=== PATIENT | female | born 1985 | race Asian ===

== ENCOUNTER 2017-09-26 08:55 | Outpatient (CLI) | payer OTHER ==
[2017-09-26 09:36] LABS: BASOPHILS % (AUTO) 0.5 % (0.0-2.0); EOSINOPHILS % (AUTO) 1.4 % (0.0-4.0); HEMOGLOBIN 13.4 g/dL (12.0-16.0); LYMPHOCYTES # (AUTO) 1.5 K/uL (2.5-16.5); LYMPHOCYTES % (AUTO) 43.9 % (20.5-51.1); MEAN CORPUSCULAR HEMOGLOBIN 31 pg (27-31); MEAN CORPUSCULAR HGB CONC 34 g/dL (33-37); MEAN CORPUSCULAR VOLUME 91.2 fL (80-94); MONOCYTES # (AUTO) 0.3 K/uL (0.8-1.0); MONOCYTES % (AUTO) 8.8 % (1.7-9.3); NEUTROPHILS # (AUTO) 1.5 K/uL (1.8-7.7); NEUTROPHILS % (AUTO) 45.4 % (42.2-75.2); PLATELET COUNT (AUTO) 108 K/uL (140-450); RED BLOOD CELL COUNT(AUTO) 4.38 MIL/uL (4.20-5.40); WHITE BLOOD COUNT (AUTO) 3.4 K/uL (4.8-10.8)
[2017-09-26 10:15] LABS: ALBUMIN 3.9 g/dL (3.4-5.0); ANION GAP 9.8 (8-16); CARBON DIOXIDE 27.6 mmol/L (21-32); CHOL/HDL RATIO 2.3 (1-4.5); CREATININE 0.5 mg/dL (0.6-1.3); FREE T4 (FREE THYROXINE) 1.05 ng/dL (0.76-1.46); POTASSIUM 4.4 mmol/L (3.5-5.1); THYROID STIMULATING HORMONE 2.73 uIU/mL (0.34-3.74); TOTAL BILIRUBIN 0.7 mg/dL (0.0-1.0)
== END 2017-09-26 20:29 | disposition home or self-care (01) ==
LOC: MLB 08:55
DX: Z00.01 Encounter for general adult medical examination with abnormal findings (principal); E78.5 Hyperlipidemia, unspecified; E11.9 Type 2 diabetes mellitus without complications; R53.83 Other fatigue
CPT/HCPCS: 36415; 80053; 83036; 84439; 84443; 85025

== ENCOUNTER 2017-10-21 08:10 | Outpatient (CLI) | payer OTHER | END 2017-10-21 19:35 | disposition home or self-care (01) | LOC: MUS 08:10 | DX: D70.9 Neutropenia, unspecified (principal); D69.6 Thrombocytopenia, unspecified | CPT/HCPCS: 76700 ==

== ENCOUNTER 2018-11-16 10:45 | Outpatient (CLI) | payer OTHER ==
[2018-11-16 11:05] LABS: BASOPHILS % (AUTO) 0.6 % (0.0-2.0); EOSINOPHILS % (AUTO) 1.7 % (0.0-4.0); HEMATOCRIT 40.5 % (36-48); HEMOGLOBIN 13.3 g/dL (12.0-16.0); LYMPHOCYTES # (AUTO) 1.6 K/uL (2.5-16.5); LYMPHOCYTES % (AUTO) 54.3 % (20.5-51.1); MEAN CORPUSCULAR HEMOGLOBIN 31 pg (27-31); MEAN CORPUSCULAR HGB CONC 33 g/dL (33-37); MEAN CORPUSCULAR VOLUME 93.5 fL (80-94); MONOCYTES # (AUTO) 0.2 K/uL (0.8-1.0); MONOCYTES % (AUTO) 8.4 % (1.7-9.3); PLATELET COUNT (AUTO) 155 K/uL (140-450); RED BLOOD CELL COUNT(AUTO) 4.33 MIL/uL (4.20-5.40); RED CELL DISTRIBUTION WIDTH 12.9 % (11.6-13.7); WHITE BLOOD COUNT (AUTO) 2.9 K/uL (4.8-10.8)
[2018-11-16 11:49] LABS: ALBUMIN 3.9 g/dL (3.4-5.0); ANION GAP 12.3 (8-16); CARBON DIOXIDE 27.2 mmol/L (21-32); CHOL/HDL RATIO 2.3 (1-4.5); CREATININE 0.6 mg/dL (0.6-1.3); POTASSIUM 4.5 mmol/L (3.5-5.1); TOTAL BILIRUBIN 0.5 mg/dL (0.0-1.0)
[2018-11-16 11:57] LABS: FREE T4 (FREE THYROXINE) 1.05 ng/dL (0.76-1.46); THYROID STIMULATING HORMONE 1.73 uIU/mL (0.34-3.74)
[2018-11-17 09:07] LABS: FOLLICLE STIMULATING HORMONE 8.6 mIU/mL (.); LUTEINIZING HORMONE 8.9 mIU/mL (.)
== END 2018-11-16 19:53 | disposition home or self-care (01) ==
LOC: MLB 10:45
DX: Z00.00 Encounter for general adult medical examination without abnormal findings (principal); E78.5 Hyperlipidemia, unspecified; E11.9 Type 2 diabetes mellitus without complications; R53.83 Other fatigue; E55.9 Vitamin D deficiency, unspecified; N95.2 Postmenopausal atrophic vaginitis
CPT/HCPCS: 36415; 80053; 82306; 83001; 83002; 83036; 84144; 84439; 84443; 85025

== ENCOUNTER 2020-03-06 12:14 | Outpatient (CLI) | payer OTHER ==
[2020-03-06 13:09] LABS: BASOPHILS % (AUTO) 0.7 % (0.0-2.0); EOSINOPHILS # (AUTO) 0.1 K/uL (0-0.4); EOSINOPHILS % (AUTO) 2.6 % (0.0-4.0); HEMATOCRIT 41.3 % (36-48); HEMOGLOBIN 14.1 g/dL (12.0-16.0); LYMPHOCYTES # (AUTO) 1.8 K/uL (2.5-16.5); LYMPHOCYTES % (AUTO) 52.5 % (20.5-51.1); MEAN CORPUSCULAR HEMOGLOBIN 31 pg (27-31); MEAN CORPUSCULAR HGB CONC 34 g/dL (33-37); MEAN CORPUSCULAR VOLUME 91.5 fL (80-94); MONOCYTES # (AUTO) 0.2 K/uL (0.8-1.0); MONOCYTES % (AUTO) 7.3 % (1.7-9.3); NEUTROPHILS # (AUTO) 1.2 K/uL (1.8-7.7); NEUTROPHILS % (AUTO) 36.9 % (42.2-75.2); PLATELET COUNT (AUTO) 138 K/uL (140-450); RED BLOOD CELL COUNT(AUTO) 4.51 MIL/uL (4.20-5.40); RED CELL DISTRIBUTION WIDTH 12.9 % (11.6-13.7); WHITE BLOOD COUNT (AUTO) 3.3 K/uL (4.8-10.8)
[2020-03-06 13:39] LABS: ANION GAP 13.5 (8-16); CARBON DIOXIDE 25.9 mmol/L (21-32); CHOL/HDL RATIO 2.8 (1-4.5); CREATININE 0.6 mg/dL (0.6-1.3); FREE T4 (FREE THYROXINE) 1.2 ng/dL (0.76-1.46); POTASSIUM 4.4 mmol/L (3.5-5.1); THYROID STIMULATING HORMONE 1.89 uIU/mL (0.34-3.74); TOTAL BILIRUBIN 0.4 mg/dL (0.0-1.0)
[2020-03-07 19:48] LABS: FOLLICLE STIMULATING HORMONE 6.6 mIU/mL (3.5 - 12.5)
[2020-03-07 19:49] LABS: ESTRADIOL SERUM 47.3 pg/mL; LUTEINIZING HORMONE 4.5 mIU/mL (2.4 - 12.6)
== END 2020-03-06 20:35 | disposition home or self-care (01) ==
LOC: MLB 12:14
DX: E78.5 Hyperlipidemia, unspecified (principal); E55.9 Vitamin D deficiency, unspecified; R53.83 Other fatigue; N92.6 Irregular menstruation, unspecified; Z00.00 Encounter for general adult medical examination without abnormal findings
CPT/HCPCS: 36415; 80053; 82306; 82670; 83001; 83002; 83036; 84144; 84402; 84403; 84439; 84443; 85025; 86147; 86160

== ENCOUNTER 2023-09-26 09:27 | Outpatient (CLI) | payer OTHER ==
[2023-09-26 10:07] LABS: BASOPHILS % (AUTO) 0.6 % (0.0-2.0); EOSINOPHILS # (AUTO) 0.1 K/uL (0-0.4); EOSINOPHILS % (AUTO) 1.7 % (0.0-4.0); HEMATOCRIT 38.8 % (36-48); HEMOGLOBIN 12.9 g/dL (12.0-16.0); LYMPHOCYTES # (AUTO) 1.8 K/uL (2.5-16.5); MEAN CORPUSCULAR HEMOGLOBIN 28 pg (27-31); MEAN CORPUSCULAR HGB CONC 33 g/dL (33-37); MEAN CORPUSCULAR VOLUME 85.1 fL (80-94); MONOCYTES # (AUTO) 0.3 K/uL (0.8-1.0); MONOCYTES % (AUTO) 9.2 % (1.7-9.3); NEUTROPHILS # (AUTO) 1.5 K/uL (1.8-7.7); NEUTROPHILS % (AUTO) 39.5 % (42.2-75.2); PLATELET COUNT (AUTO) 172 K/uL (140-450); RED BLOOD CELL COUNT(AUTO) 4.55 MIL/uL (4.20-5.40); RED CELL DISTRIBUTION WIDTH 14.8 % (11.6-13.7); WHITE BLOOD COUNT (AUTO) 3.7 K/uL (4.8-10.8)
[2023-09-26 10:11] LABS: APPEARANCE,URINE CLEAR (CLEAR); BILIRUBIN,URINE NEGATIVE (NEGATIVE); BLOOD, URINE NEGATIVE (NEGATIVE); COLOR,URINE YELLOW (YELLOW); LEUKOCYTE ESTERASE ,URINE NEGATIVE (NEGATIVE); NITRITE, URINE NEGATIVE (NEGATIVE); PH,URINE 6.5 (5.0-9.0); PROTEIN,URINE NEGATIVE (NEGATIVE); UGLUCOSE NEGATIVE (NEGATIVE); UROBILINOGEN,URINE 0.2 EU/dL (0.2 - 1)
[2023-09-26 10:38] LABS: ALBUMIN 3.6 g/dL (3.4-5.0); ANION GAP 11.3 (8-16); CALCIUM 9.2 mg/dL (8.5-10.1); CARBON DIOXIDE 27.8 mmol/L (21-32); CHOL/HDL RATIO 2.7 (1-4.5); CREATININE 0.7 mg/dL (0.6-1.3); POTASSIUM 4.1 mmol/L (3.5-5.1); THYROID STIMULATING HORMONE 2.51 uIU/mL (0.34-3.74); TOTAL BILIRUBIN 0.5 mg/dL (0.0-1.0); TOTAL PROTEIN, SERUM 7.5 g/dL (6.4-8.2)
[2023-09-27 08:08] LABS: HEMOGLOBIN A1C 5.5 % (4.8-5.6); T4 FREE (DIRECT) 1.4 ng/dL (0.82-1.77)
== END 2023-09-26 15:46 | disposition home or self-care (01) ==
LOC: MLB 09:27
PROVIDERS: ATTEND Internal Medicine
DX: Z00.01 Encounter for general adult medical examination with abnormal findings (principal); E66.3 Overweight; E78.5 Hyperlipidemia, unspecified
CPT/HCPCS: 36415; 80053; 81003; 83036; 84439; 84443; 85025